=== PATIENT | male | born 1935 | race Two or more races ===

== ENCOUNTER 2017-03-20 10:40 | Outpatient (CLI) | payer MEDICARE, OTHER | END 2017-03-20 23:59 | disposition home or self-care (01) | LOC: WOU 10:40 | PROVIDERS: ATTEND Specialist | DX: T86.828 Other complications of skin graft (allograft) (autograft) (principal); L59.8 Other specified disorders of the skin and subcutaneous tissue related to radiation; E11.628 Type 2 diabetes mellitus with other skin complications; I89.0 Lymphedema, not elsewhere classified; E85.3 Secondary systemic amyloidosis; Z92.21 Personal history of antineoplastic chemotherapy; Z86.718 Personal history of other venous thrombosis and embolism; I10 Essential (primary) hypertension | CPT/HCPCS: A6402; G0463 ==

== ENCOUNTER 2017-05-08 11:07 | Outpatient (CLI) | payer MEDICARE, OTHER | END 2017-05-08 23:59 | disposition home or self-care (01) | LOC: WOU 11:07 | PROVIDERS: ATTEND Specialist | DX: L59.8 Other specified disorders of the skin and subcutaneous tissue related to radiation (principal); T86.828 Other complications of skin graft (allograft) (autograft); E85.8 Other amyloidosis; Z85.828 Personal history of other malignant neoplasm of skin; Z86.718 Personal history of other venous thrombosis and embolism; Z92.21 Personal history of antineoplastic chemotherapy; I89.0 Lymphedema, not elsewhere classified; S80.812D Abrasion, left lower leg, subsequent encounter; X58.XXXD Exposure to other specified factors, subsequent encounter; E11.9 Type 2 diabetes mellitus without complications | CPT/HCPCS: 87070; A6209; A6402; G0463 ==

== ENCOUNTER 2017-05-15 09:40 | Outpatient (CLI) | payer MEDICARE, OTHER | END 2017-05-15 23:59 | disposition home or self-care (01) | LOC: WOU 09:40 | PROVIDERS: ATTEND Specialist | DX: T86.828 Other complications of skin graft (allograft) (autograft) (principal); L59.8 Other specified disorders of the skin and subcutaneous tissue related to radiation; I89.0 Lymphedema, not elsewhere classified; E85.8 Other amyloidosis; Z85.828 Personal history of other malignant neoplasm of skin; Z86.718 Personal history of other venous thrombosis and embolism; Z92.21 Personal history of antineoplastic chemotherapy; S80.812D Abrasion, left lower leg, subsequent encounter; X58.XXXD Exposure to other specified factors, subsequent encounter; E11.9 Type 2 diabetes mellitus without complications | CPT/HCPCS: A6209; A6402; A6452; G0463 ==

== ENCOUNTER 2017-05-22 11:37 | Outpatient (CLI) | payer MEDICARE, OTHER | END 2017-05-22 23:59 | disposition home or self-care (01) | LOC: WOU 11:37 | PROVIDERS: ATTEND Specialist | DX: L59.8 Other specified disorders of the skin and subcutaneous tissue related to radiation (principal); I89.0 Lymphedema, not elsewhere classified; T86.828 Other complications of skin graft (allograft) (autograft); E11.9 Type 2 diabetes mellitus without complications; E85.8 Other amyloidosis; Z88.1 Allergy status to other antibiotic agents; I10 Essential (primary) hypertension; Z86.718 Personal history of other venous thrombosis and embolism; S51.002A Unspecified open wound of left elbow, initial encounter; S91.102A Unspecified open wound of left great toe without damage to nail, initial encounter; S61.402A Unspecified open wound of left hand, initial encounter; X58.XXXA Exposure to other specified factors, initial encounter; Y92.89 Other specified places as the place of occurrence of the external cause | CPT/HCPCS: A6209; A6402 ==

== ENCOUNTER 2017-06-05 12:15 | Outpatient (CLI) | payer MEDICARE, OTHER | END 2017-06-05 23:59 | disposition home or self-care (01) | LOC: WOU 12:15 | PROVIDERS: ATTEND Specialist | DX: T86.828 Other complications of skin graft (allograft) (autograft) (principal); L59.8 Other specified disorders of the skin and subcutaneous tissue related to radiation; E85.3 Secondary systemic amyloidosis; I89.0 Lymphedema, not elsewhere classified; Z96.652 Presence of left artificial knee joint; Z92.21 Personal history of antineoplastic chemotherapy; E11.9 Type 2 diabetes mellitus without complications; I87.2 Venous insufficiency (chronic) (peripheral); Z86.718 Personal history of other venous thrombosis and embolism | CPT/HCPCS: A6209; A6402; G0463 ==

== ENCOUNTER 2017-06-12 08:57 | Outpatient (CLI) | payer MEDICARE, OTHER | END 2017-06-12 23:59 | disposition home or self-care (01) | LOC: WOU 08:57 | PROVIDERS: ATTEND Specialist | DX: T86.828 Other complications of skin graft (allograft) (autograft) (principal); L59.8 Other specified disorders of the skin and subcutaneous tissue related to radiation; E85.3 Secondary systemic amyloidosis; I89.0 Lymphedema, not elsewhere classified; Z92.21 Personal history of antineoplastic chemotherapy; E11.9 Type 2 diabetes mellitus without complications; Z96.652 Presence of left artificial knee joint; I10 Essential (primary) hypertension; Z86.718 Personal history of other venous thrombosis and embolism | CPT/HCPCS: A6402; G0463 ==

== ENCOUNTER 2017-07-17 11:40 | Outpatient (CLI) | payer MEDICARE, OTHER | END 2017-07-17 23:59 | disposition home or self-care (01) | LOC: WOU 11:40 | PROVIDERS: ATTEND Specialist | DX: L59.8 Other specified disorders of the skin and subcutaneous tissue related to radiation (principal); T86.828 Other complications of skin graft (allograft) (autograft); E85.3 Secondary systemic amyloidosis; I89.0 Lymphedema, not elsewhere classified; Z92.21 Personal history of antineoplastic chemotherapy; E11.9 Type 2 diabetes mellitus without complications; Z96.652 Presence of left artificial knee joint; I10 Essential (primary) hypertension; Z86.718 Personal history of other venous thrombosis and embolism | CPT/HCPCS: 11042; A6402 ==